=== PATIENT | female | born 1985 | race Caucasian/White ===

== ENCOUNTER → 2017-05-20 22:14 | Outpatient (REF) | payer OTHER, SELFPAY ==
[2017-05-20 23:02] LABS: Cholesterol 166 mg/dL (200); Glucose 85 mg/dL (70-110); High Density Lipoprotein 45 mg/dL; Triglycerides 122 mg/dL; Very Low Density Lipoprotein 24 mg/dL (5-40)
== END ==
LOC: OLS.WCEH 22:14
PROVIDERS: Family Provider Family Medicine; PCP Family Medicine; Visit Provider Family Medicine
DX: Z00.00 Encounter for general adult medical examination without abnormal findings (principal)
CPT/HCPCS: 80061; 82947

== ENCOUNTER → 2017-07-22 15:00 | Outpatient (CLI) | payer OTHER, SELFPAY | PROVIDERS: Visit Provider Obstetrics & Gynecology | DX: Z01.419 Encounter for gynecological examination (general) (routine) without abnormal findings (principal); Z12.4 Encounter for screening for malignant neoplasm of cervix ==

== ENCOUNTER → 2018-08-11 13:31 | Outpatient (CLI) | payer OTHER, SELFPAY | PROVIDERS: Visit Provider Obstetrics & Gynecology | DX: Z11.3 Encounter for screening for infections with a predominantly sexual mode of transmission (principal); Z32.01 Encounter for pregnancy test, result positive | CPT/HCPCS: 87491; 87591 ==

== ENCOUNTER → 2018-09-01 08:50 | Outpatient (CLI) | payer OTHER, SELFPAY ==
--- NOTE | 2018-09-01 08:54 | US_ITS ---
STUDY: ULTRASOUND BREAST - RIGHT REASON FOR EXAM: Female, 33 years old. PALPABLE LUMP - PT 9 WEEKS PREG. PT UNABLE TO PALPATE TECHNIQUE: Axial and longitudinal images of the RIGHT breast were performed with a high resolution ultrasound transducer. COMPARISON: None. FINDINGS: RIGHT Breast: There is a lesion in the inferior outer quadrant. The lesion measures 0.5 x 0.7 x 0.4 cm in size. Clock notation: 8 o'clock position. Distance from nipple: 5 cm. Posterior Enhancement: No. Posterior Shadowing: None. Margins: Sharp and smooth. Echogenicity: Hypoechoic with a hyperechoic center. Compression effect on Shape: No change. US/Breast Limited Unilateral IMPRESSION: The palpable lump in the right breast represents a lymph node and is probably benign. BIRADS Category 3. ASSESSMENT CATEGORY: BIRADS Category 3: Probably Benign - Short-Interval Follow-up Suggested. A letter regarding these results will be sent to the patient by the facility within 30 days. Electronically Signed: Baljinder Maxwell, at 13:16 EDT Tel , Service support ,
== END ==
PROVIDERS: Referring Provider Obstetrics & Gynecology; Visit Provider Obstetrics & Gynecology
DX: N63.10 Unspecified lump in the right breast, unspecified quadrant (principal)
CPT/HCPCS: 76642

== ENCOUNTER → 2019-01-05 | Outpatient (CLI) | payer OTHER, SELFPAY ==
[2019-01-05 10:38] LABS: Hematocrit 33.6 % (37-47); Hemoglobin 11.3 g/dL (12.0-15.0); Mean Corp Hgb Conc 33.6 g/dL (32-36); Mean Corpuscular Hgb 31.5 pg (27.0-32.0); Mean Corpuscular Volume 93.6 fL (81-99); Mean Platelet Vol. 9.7 fl (6.2-12.0); Platelet Count 348 K/mm3 (150-450); RBC Distribution Width CV 13.3 % (11.6-14.6); RBC Distribution Width SD 46.1 fl (35.1-43.9); Red Blood Count 3.59 M/mm3 (4.2-5.4); White Blood Count 10.3 K/mm3 (4.4-11.0)
[2019-01-05 11:00] LABS: Glucose Challenge Gest 1H 50g 103 mg/dL (70-140)
[2019-01-05 11:13] LABS: Vitamin D,25 Hydroxy 26.8 ng/mL (29.95-100.01)
== END | disposition home or self-care (01) ==
LOC: WOBLAB 10:14
PROVIDERS: Visit Provider Obstetrics & Gynecology
DX: Z34.82 Encounter for supervision of other normal pregnancy, second trimester (principal)
CPT/HCPCS: 36415; 82306; 82950; 85027

== ENCOUNTER 2019-03-09 19:30 | Observation (INO) | payer OTHER, SELFPAY ==
[2019-03-09 12:55] VITALS: BMI 40.0
[2019-03-09] MEDS: Betamethasone/Betamethasone 30 MG/5 ML Vial 12 MG IM (14:15)
[2019-03-09] MEDS: Ondansetron ODT 4 MG Tablet PO (14:16)
[2019-03-09] MEDS: proMETHazine 25 MG/ML Syringe 12.5 MG IV (16:53)
[2019-03-09] MEDS: Lactated Ringers 1,000 ML 1000 ML IV (17:05)
[2019-03-09 19:08] LABS: Color, Urine Yellow (Yellow); Glucose, Dipstick Normal (Normal); Leukocyte Esterase-Dipstick 25 /ul (Negative); Nitrite-Dipstick Negative (Negative); Occult Blood-Urine 25 /ul (Negative); Protein-Dipstick 30 mg/dl (Negative); Urine Bilirubin Dipstick Negative (Negative); Urine Clarity Sl. Cloudy (Clear); Urine Urobilinogen 1 mg/dl (Normal); Urine pH 6.5 (5.0 - 8.0)
[2019-03-09 19:13] LABS: Ketone-Dipstick 150 mg/dl (Negative)
[2019-03-09] MEDS: Dextrose 5%-Lactated Ringers 1,000 ML 250 ML IV (20:04)
--- NOTE | 2019-03-10 00:03 | OB.TRI.NOTE ---
History of Present Illness Date of Service: 03/09/19 - This is a late entry for 03/09/19 at 1930 Was patient seen by the physician?: Yes Date of Service: 03/09/19 Final CHANTELL: 04/03/19 Final CHANTELL Source: US >20 weeks Gestational age: 36 Weeks and 4 Days History of Present Illness: Patient is a 33 yo who was seen in the office today with c/o back pain, abdominal pain and contractions; she was sent to [facility] for evaluation; she now reports nausea and is experiencing vomiting which has subsided somewhat since receiving a dose of Phenergen. She received her first dose of cortecosteroids at 1415 today (03/09/10). Michelle has a medical history of depression and anxiety, and has experienced a 24 pound weight loss during this ; GBS culture was performed in office today, status unknown at this time Allergies amoxicillin Allergy (Verified 09/02/14 20:54) Unknown Laboratory Studies: Laboratory Tests 03/09/19 Range/Units 18:55 Urine Color Yellow (Yellow) Urine Clarity Sl. Cloudy (Clear) Urine pH 6.5 (5.0 - 8.0) Ur Specific [place] 1.020 (1.002-1.030) Urine Protein 30 H (Negative) mg/dl Urine Glucose (UA) Normal (Normal) mg/dl Urine Ketones 150 H (Negative) mg/dl Urine Occult Blood 25 H (Negative) /ul Urine Nitrite Negative (Negative) Urine Bilirubin Negative (Negative) mg/dL Urine Urobilinogen 1 H (Normal) mg/dl Ur Leukocyte Esterase 25 H (Negative) /ul Review of Systems Constitutional: Reports: Fatigue Gastrointestinal: Reports: Abdominal Pain Musculoskeletal: Reports: Back Pain Psychiatric: Reports: Anxiety Physical Exam Vitals: AVSS General: Alert, Oriented x3, Cooperative HEENT: PERRLA, EOMI Cardiovascular: Regular rate, Regular Rhythm Lungs: Clear to auscultation, Normal air movement Abdomen: Bowel Sounds Present, Soft, Non Tender, Non-Distended, Gravid Neurological: Cranial nerves II-XII grossly intact, Deep Tendon Reflexes 2+/4 and Symmetrical CHEMICAL ENGRAVER: Normal external genitalia. Negative for: Vulvar lesions Presentation: Cephalic Cervix Dilation (cm): 3.5 Station: -3 Effacement (%): 60 - Cervical exam per RN NST - FHR Rate Baby A Variability:: Moderate Accelerations:: None Decelerations:: None NST Reactive:: Non-Reactive FHR Category:: Category I Uterine Activity:: Irritability - FHR Rate Baby B Uterine Activity:: Occsassional contractions, palpate mild Impression/Plan Impression: Possible labor Ketonuria GBS unknown Cat 1 FHTs Plan: Discussed with Dr. Pranav Tran for observation Course of cortocosteroids begun Phenergen for nausea Demerol for pain D5LR for ketonuria
[2019-03-10] MEDS: Mag Hydrox/Al Hydrox/Simeth 30 ML UDC PO (00:34)
--- NOTE | 2019-03-10 00:39 | OB.TRI.PN ---
Progress Notes Date of Service: 03/09/19 Progress Note: This is a late entry for 03/09/19 at 2115 S: Sleeping, no recent c/o nausea, pain or vomiting O: AVSS FHTs: 125 bpm, moderate variability, with accels, no decels UCs: Occasional A: Resolving nausea, vomiting Not in labor GBS unknown P: Continue IV LR at KVO when D5LR infusio complete Continued monitoring, close observation Completion of corticosteroid course 03/10/19 at approx 1415 Laboratory Studies: Laboratory Tests 03/09/19 Range/Units 18:55 Urine Color Yellow (Yellow) Urine Clarity Sl. Cloudy (Clear) Urine pH 6.5 (5.0 - 8.0) Ur Specific [place] 1.020 (1.002-1.030) Urine Protein 30 H (Negative) mg/dl Urine Glucose (UA) Normal (Normal) mg/dl Urine Ketones 150 H (Negative) mg/dl Urine Occult Blood 25 H (Negative) /ul Urine Nitrite Negative (Negative) Urine Bilirubin Negative (Negative) mg/dL Urine Urobilinogen 1 H (Normal) mg/dl Ur Leukocyte Esterase 25 H (Negative) /ul
--- NOTE | 2019-03-10 00:49 | OB.TRI.PN ---
Progress Notes Date of Service: 03/09/19 Progress Note: This is a late entry for 03/09/19 at 2330 S: Resting comfortably, denies pain, nausea or vomiting O: AVSS FHTs: bpm, moderate variability, with accels, no decels UCs: Occasional A: Resolving nausea and vomiting Not in labor GBS unknown P: Continue IV LR at KVO Continue close monitoring Complete course of cortocosteroids 03/10/19 at 1415 Laboratory Studies: Laboratory Tests 03/09/19 Range/Units 18:55 Urine Color Yellow (Yellow) Urine Clarity Sl. Cloudy (Clear) Urine pH 6.5 (5.0 - 8.0) Ur Specific [place] 1.020 (1.002-1.030) Urine Protein 30 H (Negative) mg/dl Urine Glucose (UA) Normal (Normal) mg/dl Urine Ketones 150 H (Negative) mg/dl Urine Occult Blood 25 H (Negative) /ul Urine Nitrite Negative (Negative) Urine Bilirubin Negative (Negative) mg/dL Urine Urobilinogen 1 H (Normal) mg/dl Ur Leukocyte Esterase 25 H (Negative) /ul
--- NOTE | 2019-03-10 03:56 | OB.TRI.PN ---
Progress Notes Date of Service: 03/10/19 Progress Note: S: Dozing intermittently, denies pain w/exception of heartburn O: AVSS FHTs: 120bpm, moderate variability, no accels, no decels UCs: None Cervical Exam: Deferred UOP: 200 ml since admission, dark, tea colored A: Nausea/vomiting resolved Cat 1 FHTs Inadequate UOP P: 500 ml LR bolus Continue expectant management Laboratory Studies: Laboratory Tests 03/09/19 Range/Units 18:55 Urine Color Yellow (Yellow) Urine Clarity Sl. Cloudy (Clear) Urine pH 6.5 (5.0 - 8.0) Ur Specific [place] 1.020 (1.002-1.030) Urine Protein 30 H (Negative) mg/dl Urine Glucose (UA) Normal (Normal) mg/dl Urine Ketones 150 H (Negative) mg/dl Urine Occult Blood 25 H (Negative) /ul Urine Nitrite Negative (Negative) Urine Bilirubin Negative (Negative) mg/dL Urine Urobilinogen 1 H (Normal) mg/dl Ur Leukocyte Esterase 25 H (Negative) /ul
[2019-03-10] MEDS: Lactated Ringers 500 ML 999 ML IV (03:59)
[2019-03-10] MEDS: Lactated Ringers 1,000 ML 15 ML IV (05:15)
--- NOTE | 2019-03-10 08:26 | OB.TRI.PN_ITS ---
Progress Notes Date of Service: 03/10/19 Progress Note: PROGRESS NOTE No issues overnight. Contractions and nausea resolved. + FM. Denies leaking of fluid, vaginal bleeding. Michelle feels well this morning. AVSS GEN - NAD, AAO x 3 FHR 135, moderate variability, + accelerations, no decelerations TOCO 0/10 min SVE deferred A/P: 33yo @ 36 4/7wga with false labor, Cat I FHR -s/p Betamethasone x 1 -No advancing labor -Will d/c home and given second dose of betamethasone now Laboratory Studies: Laboratory Tests 03/09/19 Range/Units 18:55 Urine Color Yellow (Yellow) Urine Clarity Sl. Cloudy (Clear) Urine pH 6.5 (5.0 - 8.0) Ur Specific [place] 1.020 (1.002-1.030) Urine Protein 30 H (Negative) mg/dl Urine Glucose (UA) Normal (Normal) mg/dl Urine Ketones 150 H (Negative) mg/dl Urine Occult Blood 25 H (Negative) /ul Urine Nitrite Negative (Negative) Urine Bilirubin Negative (Negative) mg/dL Urine Urobilinogen 1 H (Normal) mg/dl Ur Leukocyte Esterase 25 H (Negative) /ul
[2019-03-10] MEDS: Betamethasone/Betamethasone 30 MG/5 ML Vial 12 MG IM (08:56)
== END 2019-03-10 09:25 | disposition home or self-care (01) ==
LOC: WPOUT 03-10 10:16
PROVIDERS: Admitting Provider Obstetrics & Gynecology; Referring Provider Obstetrics & Gynecology; Visit Provider Obstetrics & Gynecology
DX: O47.03 False labor before 37 completed weeks of gestation, third trimester (principal); Z3A.36 36 weeks gestation of pregnancy; R82.4 Acetonuria; R11.2 Nausea with vomiting, unspecified
CPT/HCPCS: 96361; 96374; 96375; 59025; 59050; 81002; 87081; 96372; 99218; J7120; G0378; J0702

== ENCOUNTER 2019-03-16 12:40 | Outpatient (CLI) | payer OTHER, SELFPAY ==
[2019-03-16 13:09] VITALS: BMI 41.2
[2019-03-16 13:16] LABS: Hematocrit 36.2 % (37-47); Hemoglobin 12.3 g/dL (12.0-15.0); Mean Corpuscular Hgb 31.1 pg (27.0-32.0); Mean Corpuscular Volume 91.4 fL (81-99); Mean Platelet Vol. 9.9 fl (6.2-12.0); Platelet Count 339 K/mm3 (150-450); RBC Distribution Width CV 13.6 % (11.6-14.6); RBC Distribution Width SD 45.4 fl (35.1-43.9); Red Blood Count 3.96 M/mm3 (4.2-5.4); White Blood Count 15.2 K/mm3 (4.4-11.0)
[2019-03-16 13:25] LABS: AST(SGOT) 12 U/L (15-37); Alanine Aminotransfer ALT/SGPT 10 U/L (13-56); Creatinine, Serum 0.74 mg/dL (0.55-1.02); EST Glomerular Filtration Rate 96 mL/min (>60); Est Glom Filt Rate - Afr Amer 116 mL/min (>60); Estimated Creatinine Clearance 101.23 ml/min; Uric Acid 6.2 mg/dL (2.6-6.0)
[2019-03-16 13:27] LABS: Protein, Urine (Random) 36.5 mg/dL (<11.9); Protein:Creat Ratio 136 mg/g CRE (0-200)
--- NOTE | 2019-03-16 23:00 | OB.TRI.NOTE ---
- Problem List (1) 37 weeks gestation of Status: Acute (2) Elevated blood pressure reading without diagnosis of hypertension Status: Acute History of Present Illness Date of Service: 03/16/19 Was patient seen by the physician?: No Reason For Visit: R/O PIH Final CHANTELL: 04/03/19 Final CHANTELL Source: US >20 weeks Gestational age: 37 Weeks and 3 Days History of Present Illness: 33yo @ 37 2/7wga sent from office with elevated BP 164/90, urine with 1+ protein. Patient denies headache, vision changes, abdominal pain. Reported she feels well. + FM, no leaking of fluid, no contractions or vaginal bleeding. Allergies amoxicillin Allergy (Verified 09/02/14 20:54) Unknown Laboratory Studies: Laboratory Tests 03/17/19 03/17/19 03/16/19 Range/Units 11:40 11:40 13:00 WBC (4.4-11.0) K/mm3 RBC (4.2-5.4) M/mm3 Hgb (12.0-15.0) g/dL Hct (37-47) % MCV (81-99) fL MCH (27.0-32.0) pg MCHC (32-36) g/dL RDW Std Deviation (35.1-43.9) fl RDW Coeff of Chichi (11.6-14.6) % Plt Count (150-450) K/mm3 MPV (6.2-12.0) fl Creatinine 0.7 0.74 (0.55-1.02) mg/dL Estim Creat Clear Calc 101.23 ml/min Est GFR (MDRD) Af Amer 116 116 (>60) mL/min Est GFR (MDRD) Non-Af 96 96 (>60) mL/min Uric Acid 6.2 H (2.6-6.0) mg/dL AST 12 L (15-37) U/L ALT 10 L (13-56) U/L U Random Total Protein (<11.9) mg/dL Urine Collection Time 24.0 24.0 (24.0) HOURS Timed Urine Volume 1125 1125 mL Urine Creatinine 120.0 (NO RANGE EST.) mg/dL Creatinine Clearance 127 (100-200) ml/min Ur Total Protein 24 Hr 191.2 H (<150 MG/24HR) mg/24HR Protein/Creatinin Ratio (0-200) mg/g CRE Urine Total Protein 17.0 H (<11.9) mg/dL 03/16/19 03/16/19 Range/Units 13:00 13:00 WBC 15.2 H (4.4-11.0) K/mm3 RBC 3.96 L (4.2-5.4) M/mm3 Hgb 12.3 (12.0-15.0) g/dL Hct 36.2 L (37-47) % MCV 91.4 (81-99) fL MCH 31.1 (27.0-32.0) pg MCHC 34.0 (32-36) g/dL RDW Std Deviation 45.4 H (35.1-43.9) fl RDW Coeff of Chichi 13.6 (11.6-14.6) % Plt Count 339 (150-450) K/mm3 MPV 9.9 (6.2-12.0) fl Creatinine (0.55-1.02) mg/dL Estim Creat Clear Calc ml/min Est GFR (MDRD) Af Amer (>60) mL/min Est GFR (MDRD) Non-Af (>60) mL/min Uric Acid (2.6-6.0) mg/dL AST (15-37) U/L ALT (13-56) U/L U Random Total Protein 36.5 H (<11.9) mg/dL Urine Collection Time (24.0) HOURS Timed Urine Volume mL Urine Creatinine 268.00 (NO RANGE EST.) mg/dL Creatinine Clearance (100-200) ml/min Ur Total Protein 24 Hr (<150 MG/24HR) mg/24HR Protein/Creatinin Ratio 136 (0-200) mg/g CRE Urine Total Protein (<11.9) mg/dL Physical Exam Vitals: avss NST - FHR Rate Baby A Baseline: 140 Variability:: Moderate Accelerations:: 15 x 15 Decelerations:: None NST Reactive:: Yes FHR Category:: Category I Uterine Activity:: 0/10 min Impression/Plan 33yo @ 37 3/7wga with elevated BPs. -BPs here wnl -Preeclamptic labs significant for elevated uric acid, otherwise labs wnl -Plan for d/c home, f/u in office later this week for BP check
[2019-03-17 13:22] LABS: 24 Hour Urine Protein 191.2 mg/24HR (<150 MG/24HR); 24HR. UA Prot. Total Volume 1125 mL
[2019-03-17 13:24] LABS: Creat.Clear Total Volume 1125 mL; Creatinine Clearance 127 ml/min (100-200); Creatinine Serum Creat 0.7 mg/dL (0.6-1.0); EST Glomerular Filtration Rate 96 mL/min (>60); Est Glom Filt Rate - Afr Amer 116 mL/min (>60)
== END 2019-03-16 14:05 | disposition home or self-care (01) ==
LOC: WPOUT 12:46 → WP 12:47
PROVIDERS: Family Provider Obstetrics & Gynecology; Visit Provider Obstetrics & Gynecology
DX: O26.893 Other specified pregnancy related conditions, third trimester (principal); R03.0 Elevated blood-pressure reading, without diagnosis of hypertension; Z3A.37 37 weeks gestation of pregnancy
CPT/HCPCS: 36415; 59025; 59050; 82565; 82570; 82575; 84156; 84450; 84460; 84550; 85027; 99218; G0378

== ENCOUNTER 2019-03-20 07:05 | Inpatient (IN) | payer OTHER, SELFPAY ==
[2019-03-20] VITALS (10 sets, daily range): BP systolic 92–169; BP diastolic 52–96; PULSE 78–92; RESP 16–18; TEMP 36.2–37; O2SAT 97–99; BMI 39.0
[2019-03-20] MEDS: Lactated Ringers 1,000 ML 200 ML IV (07:50)
[2019-03-20] MEDS: Oxytocin 30 units/NS 500 ml 30 UNITS/500 ML IV.SOLN IV (07:58)
[2019-03-20 08:16] LABS: Absolute Lymphocyte Count 1.54 X10^3/uL (0.83-4.51); Absolute Neutrophil Count 13.8 X10^3/uL (2.0-7.7); Basophil# 0.04 X10^3/uL; Basophil% 0.2 % (0-1); Eosinophil# 0.06 X10^3/uL; Eosinophils% 0.4 % (0-5); Hematocrit 37.9 % (37-47); Hemoglobin 12.9 g/dL (12.0-15.0); Lymphocyte # 1.54 X10^3/ul (4.0); Lymphocyte % 9.4 % (19-41); Mean Corpuscular Hgb 31.6 pg (27.0-32.0); Mean Corpuscular Volume 92.9 fL (81-99); Mean Platelet Vol. 10.1 fl (6.2-12.0); Monocyte# 0.81 X10^3/uL; NRBC Flagged by Analyzer 0 % (0-5); Neutrophil # 13.75 X10^3/uL (2.7-7.7); Neutrophil % 84.3 % (47-70); Platelet Count 351 K/mm3 (150-450); RBC Distribution Width CV 13.5 % (11.6-14.6); RBC Distribution Width SD 45.9 fl (35.1-43.9); Red Blood Count 4.08 M/mm3 (4.2-5.4); White Blood Count 16.3 K/mm3 (4.4-11.0)
[2019-03-20 08:24] LABS: Prothrombin Time (Protime)PT. 12.6 SECONDS (11.7-14.9)
[2019-03-20 08:25] LABS: Partial Thromboplast Time 29.2 Seconds (24.1-36.2)
[2019-03-20 08:31] LABS: AST(SGOT) 15 U/L (15-37); Alanine Aminotransfer ALT/SGPT 12 U/L (13-56); Creatinine, Serum 0.72 mg/dL (0.55-1.02); EST Glomerular Filtration Rate 99 mL/min (>60); Est Glom Filt Rate - Afr Amer 120 mL/min (>60); Estimated Creatinine Clearance 104.04 ml/min; Uric Acid 5.4 mg/dL (2.6-6.0)
[2019-03-20] MEDS: Labetalol 20 MG/4 ML Vial IV (09:00)
[2019-03-20] MEDS: Magnesium Sulfate 4gm/100mL 4 GM/100 ML IV.SOLN. IV (09:18)
--- NOTE | 2019-03-20 09:30 | PCM.HP.OB ---
- Problem List (1) 37 weeks gestation of Status: Acute (2) Preeclampsia Status: Acute Qualifiers: Trimester: third trimester Qualified Code(s): O14.93 - Unspecified pre-eclampsia, third trimester History Date of Admission: 03/20/19 Final CHANTELL: 04/04/19 Final CHANTELL Source: US >20 weeks Gestational age: 37 Weeks and 6 Days History of this : This is a 33 year-old, G [2], P [1], at 37 6/7 weeks gestational age presents for scheduled induction for gestational hypertension. Denies headache, vision changes, shortness of breath or abdominal pain. + FM. No LOF or VB. No contractions. Allergies amoxicillin Allergy (Verified 09/02/14 20:54) Unknown Home Medications: Home Medications Vits [Prenatabs FA ] 1 tablet PO DAILY 08/27/14 Escitalopram Oxalate [Lexapro] 10 mg PO DAILY 12/09/14 Smoking Status: Never smoker Alcohol: None Number of Fetus(es): 1 NST - FHR Rate Baby A Baseline: 140 Variability:: Moderate Accelerations:: 15 x 15 Decelerations:: None NST Reactive:: Yes FHR Category:: Category I Uterine Activity:: 3 History Past Pregnancies: Past Pregnancies Delivery Date Name GA/Weeks Outcome Route Weight Infant Gender Labor Length Anesthesia Delivery Location Provider FOB 11/2014 [facility] 37 Living 5 lb 7oz M Labs: Mom's Problem List Problem Status Onset Code Preeclampsia Acute O14.90 Mom's Labs & Results 03/20/19 03/20/19 03/20/19 07:50 07:50 07:50 WBC 16.3 H RBC 4.08 L Hgb 12.9 Hct 37.9 MCV 92.9 MCH 31.6 MCHC 34.0 RDW Std Deviation 45.9 H RDW Coeff of Chichi 13.5 Plt Count 351 MPV 10.1 Immature Gran % (Auto) 0.700 Neut % (Auto) 84.3 H Lymph % (Auto) 9.4 L Ponce % (Auto) 5.0 Eos % (Auto) 0.4 Baso % (Auto) 0.2 Absolute Neuts (auto) 13.8 H Absolute Lymphs (auto) 1.54 Nucleated RBC % 0 PT 12.6 INR 1.0 APTT 29.2 Creatinine Estim Creat Clear Calc Est GFR (MDRD) Af Amer Est GFR (MDRD) Non-Af Uric Acid AST ALT U Random Total Protein Urine Creatinine Protein/Creatinin Ratio Blood Type O POSITIVE Antibody Screen NEGATIVE 03/20/19 03/20/19 07:50 10:10 WBC RBC Hgb Hct MCV MCH MCHC RDW Std Deviation RDW Coeff of Chichi Plt Count MPV Immature Gran % (Auto) Neut % (Auto) Lymph % (Auto) Ponce % (Auto) Eos % (Auto) Baso % (Auto) Absolute Neuts (auto) Absolute Lymphs (auto) Nucleated RBC % PT INR APTT Creatinine 0.72 Estim Creat Clear Calc 104.04 Est GFR (MDRD) Af Amer 120 Est GFR (MDRD) Non-Af 99 Uric Acid 5.4 AST 15 ALT 12 L U Random Total Protein 58.5 H Urine Creatinine 484.00 Protein/Creatinin Ratio 121 Blood Type Antibody Screen Course Did the patient receive Yes care? Labs Blood Type: O RH: POSITIVE RPR/VDRL/Syphilis Nonreactive HbSAg Negative Chlamydia Negative Gonorrhea Negative HIV/AIDS Non-Reactive Group B Strep: Negative Current Obstetrical History Gestational Diabetes No Incompetent Cervix No Infertility No IUGR No Macrosomia No Hypertension/Pre-eclampsia Yes Placenta Previa/Abruption No PTL/PROM No Uterine anomaly No Oligohydramnios No Polyhydramnios No Multiple gestation No Past Medical History Asthma No Diabetes No Hypertension No Heart disease No Mitral valve prolapse No Neurologic/Seizure disorder/ No Migraines Kidney disease No Liver disease No Varicosities No Clotting disorders/Hx of DVT No Thyroid Dysfunction No Other medical diseases No Psychiatric disorders Yes: anxiety Major trauma No Abnormal PAP smear No Sleep apnea No Mammogram in the last 2 years No Social History Marital Status: SINGLE Alleged father Lu [place] Hx Smoking No Smoking Status Never smoker Expected Infant Delivery Method: Spontaneous Vaginal Number of Visits: 12 Review of Systems Constitutional: Reports: Fatigue. Denies: Fever Eyes: Denies: Vision Change Respiratory: Denies: Shortness of Breath Gastrointestinal: Reports: Nausea. Denies: Abdominal Pain, Vomiting Gynecological: Denies: Vaginal bleeding Neurological: Denies: Headaches Physical Exam Vitals: Vital Signs Temp Pulse Resp BP Pulse Ox 97.9 F 78 18 112/57 L 97 03/20/19 20:45 03/20/19 20:45 03/20/19 20:45 03/20/19 20:45 03/20/19 20:45 BPs on admission to 170s/100s General: Alert, Oriented x3, Cooperative, No apparent distress HEENT: Atraumatic, Normocephalic Cardiovascular: Regular rate, Regular Rhythm, Normal S1, Normal S2 Lungs: Clear to auscultation, Normal air movement Abdomen: Soft, Non Tender, Non-Distended, Gravid Neurological: Neuro grossly intact BINDING PRINTER: Normal external genitalia Estimated gestational size: Appropriate for gestational size Presentation: Cephalic Cervix Dilation (cm): 5 Station: -3 Effacement (%): 60 Assessment/Plan All Active Problems 37 weeks gestation of (Acute) Elevated blood pressure reading without diagnosis of hypertension (Acute) Preeclampsia (Acute) This is a 33 year-old, G [2], P [1001], at 37 6/7 weeks gestational age with preeclampsia with severe features, Cat I FHR -Pitocin started -Amniotomy performed with clear fluid -IV Labetalol - initiate hypertensive protocol for severely elevated BPs - status reassuring
[2019-03-20] MEDS: Magnesium Sulfate 4gm/100mL 2 GM/50 ML IV.SOLN. IV (09:38)
[2019-03-20] MEDS: Lactated Ringers 500 ML 999 ML IV (09:40)
[2019-03-20] MEDS: Magnesium Sulfate 20 GM/500 ML BAG IV ×2 (09:50→19:49)
[2019-03-20] MEDS: Labetalol 100 MG Tablet PO ×2 (10:09→21:50)
[2019-03-20 11:05] LABS: Protein, Urine (Random) 58.5 mg/dL (<11.9); Protein:Creat Ratio 121 mg/g CRE (0-200)
--- NOTE | 2019-03-20 12:54 | PLAC_PTH ---
PATIENT: ULISES COOLEY LOC: [facility] U#:[id number] AGE/SX: 33/F ROOM: WP015 RE03/20/[address]: Dr. Aura Escalera MD : 1985 BED: 1 DIS: 03/22/2019 SPEC #: [id number] RECD: 03/20/19 15:35 STATUS: AMALIA RENoemy #: [id number] CYRUS: 03/20/19 12:[address]: Aura Beckham DEPT: SURGICAL PATHOLOGY RECD BY: Paolo Lopez ENTERED: 03/23/19 09:47 SP TYPE: PLACENTA OTHR DR: Julia Primary Care Phys Tissues: Placenta, NOS Procedures: Surgery Specimen Level V HEADER OPERATION: Vaginal delivery PRE-OP DIAGNOSIS: Vaginal delivery TISSUE SUBMITTED: Placenta MICROSCOPIC DIAGNOSIS Placenta: Placental disc - third trimester placenta (539 gm). - Focal area of peripheral infarction (4 cm in greatest dimension). - Focal intervillous and perivillous fibrin deposition. Membranes - focal acute chorioamnionitis. Umbilical cord - three blood vessels and no pathologic diagnosis. SJ:funmi 03/24/19 MICROSCOPIC DESCRIPTION Slides are reviewed. GROSS DESCRIPTION SPECIMEN: PLACENTA / CLINICAL INFORMATION: A. Weight: 2.687 kg B. Gestational Age: 37 weeks C. Sex: Female PLACENTAL WEIGHT (POST FIXATION): 539 gm PLACENTAL DIMENSIONS: 21 x 19 x 3.5 cm PLACENTAL SHAPE: Usual ovoid PLACENTAL WEIGHT FOR GESTATIONAL AGE: Within 10-99th percentile MEMBRANES - Present. The membranes are partly fragmented. A few blood clots are noted in the membranes. A. Insertion: Marginal B. Site of rupture from edge: At edge of placental disc C. Color of membrane: Olson-roy D. Abnormalities: None UMBILICAL CORD - Present A. Color: Olson-roy B. Insertion: Central C. Length: Up to 28 cm D. Diameter: 1.3 cm E. Number of vessels: Three F. Abnormalities: None PLACENTAL DISC - Present A. Color of surface: Olson-roy B. surface abnormalities: None C. Maternal cotyledons: Intact with minimal tears D. Attached retro placental clot: No clot E. Cut surface: Dark red and spongy F. Lesions: The peripheral portion of the placenta shows a olson, indurated area measuring 4 cm in greatest dimension. G. Separate clot: Received in the container are multiple clots weighing 180 gm and measuring in aggregate 11 x 11 x 5 cm. SECTIONS SUBMITTED: 1. Membrane roll 2. Cord, maternal end, lesion 3. Cord, end, lesion 4. Placental disc, and maternal surfaces 5. Placental disc, and maternal surfaces 6. Placental disc, and maternal surfaces DOROTHY:funmi 03/23/19 TC:2 CPT: 32222
[2019-03-20] MEDS: Oxytocin 30 units/NS 500 ml 30 UNITS/500 ML IV.SOLN 334 UNITS IV (13:05)
[2019-03-20 15:35] LABS: Pathology Specimen OB SEE PATHOLOGY REPORT
--- NOTE | 2019-03-20 19:49 | NURSING ---
Bilateral bicep and bilateral patellar reflexes WNL, 2+ at 1949. No clonus present .
--- NOTE | 2019-03-20 19:50 | NURSING ---
See QS chart for all BP, HR and Pulse ox during labor and through recovery and through 18:49. Unable to late chart on mar infusion /titration. Mother's response has been tolerating well throughout day, resp even, unlabored with normal depth.
--- NOTE | 2019-03-20 20:23 | PCM.OPRPT ---
Problem List (1) Preeclampsia Status: Acute Qualifiers: Trimester: third trimester Qualified Code(s): O14.93 - Unspecified pre-eclampsia, third trimester Report of Operation Date of Procedure: 03/20/19 Vaginal Delivery Maternal Presentation: Medically Indicated Induction Method of Induction: Pitocin, Amniotomy Medical Reason for Induction: Gestational Hypertension Amniotic Membrane Rupture Type: Artificial Rupture of Membrane time: 03/20/19 0910h Amniotic Fluid Description: Clear Final CHANTELL: 04/04/19 Gestational age: 37 Weeks and 6 Days Date of Procedure: 03/20/19 Pre-Operative Diagnosis: 37 6/7wga, preeclampsia with severe features Post-Operative Diagnosis: 37 6/7wga, preeclampsia with severe features Surgery/ Procedure Performed: Spontaneous Vaginal Delivery Anesthesiologist: Morro Nur Type of Anesthesia: Epidural Description of Procedure: Patient was FD/+3 station on my arrival. Pushed to deliver a female over an intact perineum through a nuchal cord. The infant was placed on the maternal abdomen and further attended by nursery personnel. The cord was doubly clamped and cut. Cord gases and cord blood specimen were obtained. The placenta delivered spontaneously and appeared intact on inspection. IV pitocin was started. Bleeding was heavy with atony without hemorrhage. Intrauterine exam was performed with evacuation of clot and bimanual uterine massage was performed and Hemabate given with hemostasis attained. A left labial laceration was repaired with 3-0 Vicryl Rapide. Sponge and needle counts were correct x 2. Presentation: Vertex Placental Delivery Description: Spontaneous Placenta Disposition: [facility] Cord Vessel Description: 3 Vessels Nuchal Cord Compression: With compression Cord Gases drawn per routine: ABG, VBG Cord Entanglement: Around neck x 1, tight Drain: Helm to straight drain Estimated Blood Loss: 500 ml Infant A gender: Female (1 minute): 8 (5 minute): 8 Episiotomy Description: None Medications given after delivery: IV Pitocin, IM Hemabate Complications: None
--- NOTE | 2019-03-20 21:07 | NURSING ---
Left labial laceration. WNL.
--- NOTE | 2019-03-20 21:07 | NURSING ---
Indwelling urinary catheter present. WNL.
--- NOTE | 2019-03-20 21:45 | NURSING ---
B/L bicep and B/L patellar reflexes WNL, 2+. Clonus not present.
--- NOTE | 2019-03-20 23:49 | NURSING ---
Bilateral bicep and bilateral patellar reflexes WNL, 2+. Clonus not present.
--- NOTE | 2019-03-20 23:54 | NURSING ---
Left labial laceration. WNL.
--- NOTE | 2019-03-20 23:59 | NURSING ---
Indwelling kumar catheter present. WNL.
[2019-03-21 00:45] VITALS: BP 89/50; RESP 16
[2019-03-21] MEDS: 0.9% Saline Lock 10 ML Syringe IV (00:58)
[2019-03-21 04:24] VITALS: BP 109/57; PULSE 80; RESP 18; TEMP 36.3; O2SAT 97
--- NOTE | 2019-03-21 04:29 | NURSING ---
Left labial laceration. WNL.
--- NOTE | 2019-03-21 04:48 | NURSING ---
Urinary catheter removed at 0448. Catheter was patent and WNL. No issues with removal, patient tolerated well.
--- NOTE | 2019-03-21 04:51 | NURSING ---
Patient up and ambulated to couch to sit up to breast feed . Feeding going much better now that patient is sitting up. Tolerated ambulation well.
--- NOTE | 2019-03-21 09:49 | PCM.PN.OB ---
Patient Problems: Active and Suspected Problems Preeclampsia (Acute) Subjective: Denies headache, vision changes, abdominal pain, shortness of breath, chest pain. No heavy lochia. Feels well this morning. Objective: AVSS - Physical Exam General: Alert, Oriented x3, Cooperative, No apparent distress HEENT: Atraumatic, Normocephalic Lungs: Clear to auscultation, Normal air movement Cardiovascular: Regular rate, Regular Rhythm, Normal S1, Normal S2 Abdomen: Soft, Non Tender, Non-Distended, - - Fundus firm and nontender, lochia scant Extremities: No edema, No Calf Tenderness Neurological: Neuro grossly intact Psych/Mental Status: Normal Affect, Appropriate, Alert and oriented to time, place, person, mood and affect Vital Signs Temp Pulse Resp BP Pulse Ox 98.0 F 74 18 154/88 H 97 03/22/19 07:52 03/22/19 07:52 03/22/19 07:52 03/22/19 08:25 03/22/19 07:52 Oxygen Delivery Method Room Air Weight: 109.7 kg Body Mass Index (BMI) 39.0 Intake and Output for Last 24 Hours 03/20/19 03/21/19 03/22/19 23:59 23:59 23:59 Intake Total 2961.26 / 2961.26 77.5 / 77.5 Output Total 2175 / 2175 800 / 800 Balance 786.26 / 786.26 -722.5 / -722.5 Medical Necessity - Tobacco Use Smoking Status: Never smoker Assessment/Plan All Active Problems 37 weeks gestation of (Acute) Elevated blood pressure reading without diagnosis of hypertension (Acute) Preeclampsia (Acute) This is a 33 year-old, G [2], P [2], PPD#1 s/p doing well. -hx preeclampsia with severe features s/p magnesium - no si/sx worsening. Continue to monitor. -Rh positive, Rubella immune -Routine care
[2019-03-21 09:50] VITALS: BP 105/57; PULSE 85; RESP 16; TEMP 36.4; O2SAT 98
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
[2019-03-21] MEDS: Escitalopram Oxalate 10 MG Tablet PO (10:20)
[2019-03-21] MEDS: Prenatal Vits Tablet 1 TABLET PO (10:20)
[2019-03-21 13:55] VITALS: BP 131/75; PULSE 86; RESP 16; TEMP 36.4; O2SAT 96
[2019-03-21 19:52] VITALS: BP 136/77; PULSE 76; RESP 16; TEMP 36.4
[2019-03-22] VITALS (9 sets, daily range): BP systolic 130–163; BP diastolic 63–90; PULSE 71–95; RESP 16–18; TEMP 36.1–36.7; O2SAT 97–98
--- NOTE | 2019-03-22 09:16 | NURSING ---
Dr. Alana Escalera on unit, updated on recent BPs, patient denies RODRIGUEZ, visual changes and LUQ pain. Plan to continue to monitor at this time.
--- NOTE | 2019-03-22 09:43 | PCM.PN.OB ---
Patient Problems: Active and Suspected Problems Preeclampsia (Acute) Subjective: No issues overnight. Denies headache, vision changes, shortness of breath, heavy lochia or pain. She feels well. Denies increased anxiety, but reports her stepmother is stressing her out. Objective: AVSS - Physical Exam General: Alert, Oriented x3, Cooperative, No apparent distress HEENT: Atraumatic, Normocephalic Lungs: Clear to auscultation, Normal air movement Cardiovascular: Regular rate, Regular Rhythm, Normal S1, Normal S2 Abdomen: Soft, Non Tender, Non-Distended, - - Fundus firm and nontender Extremities: No edema, No Calf Tenderness Neurological: Neuro grossly intact Psych/Mental Status: Normal Affect, Appropriate, Alert and oriented to time, place, person, mood and affect Vital Signs Temp Pulse Resp BP Pulse Ox 98.0 F 74 18 154/88 H 97 03/22/19 07:52 03/22/19 07:52 03/22/19 07:52 03/22/19 08:25 03/22/19 07:52 Oxygen Delivery Method Room Air Weight: 109.7 kg Body Mass Index (BMI) 39.0 Intake and Output for Last 24 Hours 03/20/19 03/21/19 03/22/19 23:59 23:59 23:59 Intake Total 2961.26 / 2961.26 77.5 / 77.5 Output Total 2175 / 2175 800 / 800 Balance 786.26 / 786.26 -722.5 / -722.5 Medical Necessity - Tobacco Use Smoking Status: Never smoker Assessment/Plan All Active Problems 37 weeks gestation of (Acute) Elevated blood pressure reading without diagnosis of hypertension (Acute) Preeclampsia (Acute) This is a 33 year-old, G [2], P [2], PPD#2 s/p doing well. -hx preeclampsia with severe features - BPs elevated this morning and patient otherwise asymptomatic. Will monitor, if repeat BPs are elevated will start oral antihypertensive. -Routine care. -Rh positive -Anticipate discharge later today
--- NOTE | 2019-03-22 10:10 | DCINST_ITS ---
Discharge Diet: No Restrictions Discharge Activity: Return to Normal Activity, May Shower, May Take a Tub Bath May resume sexual activity in: 6 weeks Additional Instructions: If you experience any of the following, contact your healthcare provider. * Bleeding that soaks a pad every hour for 2 hours * Fever 100.4 or higher * Unrelieved incision or abdominal pain * Swelling, redness, discharge or bleeding from your incision or episiotomy site * Your incision begins to separate * Problems urinating (including inability to urinate or burning while urinating). * Visual changes * Severe headache * Flu-like symptoms * Pain or redness in one of both of your breasts * Pain, warmth, tenderness or swelling in your legs, especially the calf area * Frequent nausea and vomiting * Symptoms of depression or anxiety If you experience any of the following, call 911 or go to the nearest Emergency Room. * Chest pain * Problems breathing * Seizure activity * Partial or complete paralysis of a body part, slurred speech, weakness or drooping of the face, or a sudden inability to walk or hold your balance Allergies/Adverse Reactions: Allergies amoxicillin Allergy (Verified 09/02/14 20:54) Unknown Medications to take at Discharge Vits [Prenatabs FA ] 1 tablet PO DAILY 08/27/14 Escitalopram Oxalate [Lexapro] 10 mg PO DAILY 12/09/14 Ibuprofen [Motrin] 600 mg PO Q8H PRN #30 tab 03/22/19 NIFEdipine [Procardia Xl] 60 mg PO DAILY #30 tab 03/22/19 The following prescriptions were given: Ibuprofen [Motrin] 600 mg PO Q8H PRN #30 tab PRN Reason: Pain Score 1-10/10 Transmission Status: Re[facility] by [id number] NIFEdipine [Procardia Xl] 60 mg PO DAILY #30 tab Transmission Status: Pending to [id number] Please Follow Up With: Aura Rock MD - blood pressure and mood check When: 7-10 days Please Follow Up With: Aura Rock MD When: 6 weeks Primary Care Physician: Care Physician,No Primary [Primary Care Provider] - Test Results: Test results from this visit will be discussed in further detail at your follow- up appointment, if applicable.
[2019-03-22] MEDS: Escitalopram Oxalate 10 MG Tablet PO (11:13)
[2019-03-22] MEDS: Prenatal Vits Tablet 1 TABLET PO (11:13)
--- NOTE | 2019-03-22 14:53 | NURSING ---
Dr. Alana Escalera on unit, discussed all recent BPs since 1200. Plan to start patient on Procardia and monitor for 4 hours prior to discharge.
[2019-03-22] MEDS: NIFEdipine 60 MG Tablet PO (15:29)
--- NOTE | 2019-03-22 19:26 | NURSING ---
Dr. Alana Escalera on unit, updated on last BP. Orders to discharge home, patient has BP cuff at home- instructed to call if symptomatic and follow up in office for repeat BP check in 7-10 days.
== END 2019-03-22 19:35 | disposition home or self-care (01) | DRG 807 ==
PROVIDERS: Admitting Provider Obstetrics & Gynecology; Referring Provider Obstetrics & Gynecology; Visit Provider Obstetrics & Gynecology
DX: O14.14 Severe pre-eclampsia complicating childbirth (principal); O99.344 Other mental disorders complicating childbirth; F41.9 Anxiety disorder, unspecified; O69.1XX0 Labor and delivery complicated by cord around neck, with compression, not applicable or unspecified; O70.0 First degree perineal laceration during delivery; Z37.0 Single live birth; Z3A.37 37 weeks gestation of pregnancy
CPT/HCPCS: 59025; 59050; 82565; 82570; 84156; 84450; 84460; 84550; 85025; 85610; 85730; 86850; 86900; 86901; 88307; 99218; J7120; A4216; G0378

== ENCOUNTER → 2020-02-01 09:42 | Outpatient (CLI) | payer MEDICAID, SELFPAY ==
[2019-03-20 07:27] VITALS: BMI 39.0
== END ==
DX: U07.1 COVID-19 (principal)
CPT/HCPCS: 87635; 94799; C9803; U0003

== ENCOUNTER → 2020-05-25 | Outpatient (CLI) | payer MEDICAID, SELFPAY ==
[2019-03-20 07:27] VITALS: BMI 39.0
[2020-05-27 07:07] LABS: Chlamydia By Nucleic Acid AMP Negative (Negative)
[2020-05-27 10:12] LABS: Gonococcus By Nucleic Acid AMP Negative (Negative)
== END | disposition home or self-care (01) ==
LOC: LABSPEC 09:29
PROVIDERS: Visit Provider Obstetrics & Gynecology
DX: Z11.3 Encounter for screening for infections with a predominantly sexual mode of transmission (principal)
CPT/HCPCS: 87491; 87591

== ENCOUNTER → 2020-05-30 14:19 | Outpatient (CLI) | payer MEDICAID, SELFPAY ==
[2019-03-20 07:27] VITALS: BMI 39.0
--- NOTE | 2020-05-30 14:27 | BI_ITS ---
MAMMOGRAPHY - BILATERAL DIAGNOSTIC REASON FOR EXAM: Female, 34 years old. Palpable lump in the inferior medial aspect of the right breast. PERTINENT HISTORY: Maternal grandfather with breast cancer. Aunt with breast cancer. TECHNIQUE: Digital bilateral breast jay (3D mammographic acquisition) in the CC and MLO projections. 2-D mediolateral oblique (MLO) and craniocaudad (CC) views of both breasts were obtained. CAD: Full Field Digital Mammography with Computer Added Detection was performed. COMPARISON: None. Baseline examination. FINDINGS: Breast Composition: There are scattered areas of fibroglandular density. There are no dominant masses or suspicious calcifications. There is a 5.2 mm x 6.5 mm well-defined nodule in the central lateral aspect of the right breast. This most likely represents a small intramammary lymph node. No other significant abnormalities are identified. BI/DIAG MAMM W/CAD, BILAT IMPRESSION: 5.2 mm x 6.5 mm well-defined nodule in the central lateral aspect of the right breast. With the patient''s history of a palpable lump in the central lateral aspect of the right breast, correlation with ultrasound is recommended. ASSESSMENT CATEGORY: BIRADS Category 0: Incomplete. Need additional imaging evaluation. A letter regarding these results will be sent to the patient by the facility within 30 days. Approximately 10% of breast cancers are not detected by mammography. A normal mammogram should not delay biopsy of a clinically suspicious abnormality. Electronically Signed: Bran Alonzo, at 15:30 EST , Service support ,
--- NOTE | 2020-05-30 14:56 | US_ITS ---
STUDY: ULTRASOUND BREAST - RIGHT REASON FOR EXAM: Female, 34 years old. Palpable lump in the right breast. TECHNIQUE: Axial and longitudinal images of the RIGHT breast were performed with a high resolution ultrasound transducer. # OF IMAGES: 89 COMPARISON: Comparison is made with prior mammogram done earlier in the day. Comparison is also made with prior sonogram of the right breast dated 09/01/2018. FINDINGS: RIGHT Breast: No sonographic abnormality corresponding to the palpable abnormality is seen. Stable 6 mm x 4 mm x 8 mm well-defined hypoechoic nodule at the 8 o''clock position of the breast at 4 cm from the nipple. This most likely represents a small lymph node. US/Breast Limited Unilateral IMPRESSION: Stable examination. ASSESSMENT CATEGORY: BIRADS Category 2: Benign. A letter regarding these results will be sent to the patient by the facility within 30 days. Electronically Signed: Bran Alonzo, at 15:50 EST , Service support ,
== END ==
PROVIDERS: PCP Family Medicine; Referring Provider Obstetrics & Gynecology; Visit Provider Obstetrics & Gynecology
DX: N63.15 Unspecified lump in the right breast, overlapping quadrants (principal)
CPT/HCPCS: 76642; 77062; 77066; G0279

== ENCOUNTER → 2020-07-05 10:14 | Outpatient (CLI) | payer MEDICAID, SELFPAY ==
[2019-03-20 07:27] VITALS: BMI 39.0
[2020-07-05 12:46] LABS: hCG Titer Quant., Serum 216 mIU/mL (1-3)
[2020-07-05 13:25] LABS: Progesterone Level 7.73 ng/mL (See Comment)
[2020-07-08 03:07] LABS: Chlamydia By Nucleic Acid AMP Negative (Negative)
[2020-07-08 20:16] LABS: HPV APTIMA, High Risk Positive (Negative)
[2020-07-08 20:17] LABS: Gonococcus By Nucleic Acid AMP Negative (Negative)
== END ==
PROVIDERS: PCP Family Medicine; Visit Provider Obstetrics & Gynecology
DX: Z32.01 Encounter for pregnancy test, result positive (principal); Z12.4 Encounter for screening for malignant neoplasm of cervix
CPT/HCPCS: 36415; 84144; 84702; 87491; 87591; 87624; 88175; G0145

== ENCOUNTER → 2020-07-07 10:02 | Outpatient (CLI) | payer MEDICAID, SELFPAY ==
[2019-03-20 07:27] VITALS: BMI 39.0
[2020-07-07 11:10] LABS: hCG Titer Quant., Serum 185 mIU/mL (1-3)
== END ==
PROVIDERS: PCP Family Medicine; Visit Provider Obstetrics & Gynecology
DX: O20.0 Threatened abortion (principal); Z3A.00 Weeks of gestation of pregnancy not specified
CPT/HCPCS: 36415; 84702

== ENCOUNTER → 2020-07-14 13:40 | Outpatient (CLI) | payer MEDICAID, SELFPAY ==
[2019-03-20 07:27] VITALS: BMI 39.0
[2020-07-14 15:28] LABS: Internal QC Validated? YES +Cl - CLEAR BKGD; Pregnancy, Serum, hCG Quali. NEGATIVE Negative
== END ==
PROVIDERS: PCP Family Medicine; Visit Provider Obstetrics & Gynecology
DX: O20.0 Threatened abortion (principal); Z3A.00 Weeks of gestation of pregnancy not specified
CPT/HCPCS: 36415; 84703

== ENCOUNTER → 2020-08-02 | Outpatient (CLI) | payer MEDICAID, SELFPAY ==
[2019-03-20 07:27] VITALS: BMI 39.0
--- NOTE | 2020-08-02 | IMM_PTH ---
PATIENT: ULISES COOLEY [facility] U#:[id number] AGE/SX: 35/F ROOM: RE08/02/[address]: Dr. Aura Escalera MD : 1985 BED: DIS: 08/02/2020 SPEC #: [id number] RECD: 08/04/20 10:14 STATUS: AMALIA REQ #: [id number] CYRUS: 08/02/20 00:[address]: Aura Beckham DEPT: IMMUNOHISTOCHEMISTRY RECD BY: Dorcas Bojorquez ENTERED: 08/04/20 10:14 SP TYPE: IMMUNO OTHR DR: Dr. Gary Rain DO Tissues: A - Uterine cervix, NOS Procedures: p16 (initial) KI-67 (add) PHYSICIAN & INSTITUTION [place] [id number] SPECIMEN INFORMATION: Tissue Source: A - Cervix at 11 o'clock Clinical Info: ASCUS, HR HPV Specimen Number: [id number] CPT code: 67946, 70348 METHODOLOGY: Deparaffinized sections of prefer/formalin-fixed tissue or PAP/DQ stained slides are incubated with monoclonal/polyclonal antibodies/oligonucleotide probes. Localization is made via biotin free immunoperoxidase method. Appropriate controls are performed and reacted as expected. Results on target cell population are indicated in the following table: RESULTS: ANTIBODY / CLONE RESULT Block A P16 (E6H4) positive, focal and patchy Ki-67 (30-9) positive, low These tests were developed and their performance characteristics determined by [facility]. They may not have been cleared or approved by the U.[place]. Food and Drug Administration. The FDA has determined that such clearance or approval is not necessary. The above immunohistochemical/dualISH markers are ordered and reviewed by the Pathologist. INTERPRETATION: A. Cervix at 11 o'clock, biopsy: Focal mild squamous dysplasia. DOROTHY:funmi 08/05/2020
--- NOTE | 2020-08-02 14:00 | CER_PTH ---
PATIENT: ULISES COOLEY [facility] U#:[id number] AGE/SX: 35/F ROOM: RE08/02/[address]: Dr. Aura Escalera MD : 1985 BED: DIS: 08/02/2020 SPEC #: [id number] RECD: 08/02/20 15:44 STATUS: AMALIA RENoemy #: [id number] CYRUS: 08/02/20 14:[address]: Aura Beckham DEPT: SURGICAL PATHOLOGY RECD BY: Mami Pritchett ENTERED: 08/03/20 12:55 SP TYPE: CERV OTHR DR: Dr. Gary Rain DO Tissues: A - Uterine cervix, NOS B - Endocervical Procedures: Surgery Specimen Level IV HEADER OPERATION: Colposcopy PRE-OP DIAGNOSIS: ASCUS, HR HPV TISSUE SUBMITTED: A - Cervical biopsy at 11 o'clock, B - ECC MICROSCOPIC DIAGNOSIS A. 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 Moderate chronic inflammation, mild acute inflammation and squamous metaplasia. See comment. B. ECC: Proliferative endometrium. Moderate chronic endometritis and mild acute endometritis. Scant fragments of benign endocervical epithelium. Negative for dysplasia. See comment. SJ:rg 08/04/2020 COMMENT A. Immunohistochemistry ([id number]) for surrogate HPV marker (p16) supports the above diagnosis. B. The specimen predominantly consists of endometrial tissue. Case has been reviewed in consultation with Dr. Ocampo who concurs with the above diagnosis. IDC:AM MICROSCOPIC DESCRIPTION Slides are reviewed. GROSS DESCRIPTION A - Received in fixative is one container labeled with the patient's name and designated cervical at 11 o'clock. The specimen consists of multiple irregular fragments of light olson soft tissue that in aggregate measure 0.5 x 0.4 x 0.1 cm. The specimen is totally submitted in one cassette. B - Received in fixative is one container labeled with the patient's name and designated ECC. The specimen consists of multiple irregular fragments of olson mucoid tissue that in aggregate measure 2.5 x 2.5 x 0.1 cm. The specimen is totally submitted in one cassette. / DOROTHY:funmi 08/03/20 TC:5 CPT: 52828 x2
== END | disposition home or self-care (01) ==
PROVIDERS: PCP Family Medicine; Visit Provider Obstetrics & Gynecology
DX: N87.0 Mild cervical dysplasia (principal)
CPT/HCPCS: 88305; 88341; 88342

== ENCOUNTER → 2021-06-18 19:25 | Outpatient (CLI) | payer MEDICAID, SELFPAY | PROVIDERS: PCP Family Medicine | DX: U07.1 COVID-19 (principal) | CPT/HCPCS: 87635; U0003; U0005 ==

== ENCOUNTER 2022-03-04 12:33 | Emergency (ER) | payer MEDICAID, SELFPAY ==
[2022-03-04 12:34] VITALS: BP 144/104; PULSE 120; RESP 18; TEMP 36.4; O2SAT 98; BMI 34.7
--- NOTE | 2022-03-04 12:52 | EX.ED.DYSGE1 ---
HPI History of Present Illness Chief Complaint: General Illness Informant: patient Onset/Context/Timing Onset: Weeks (1-2) Context: Gradual Onset Timing: Continuous Quality: achy, malaise Location: all over Current Severity: Severe Maximum Severity: Severe Worsened by: lying at rest at night Relieved by: getting around during the day Associated Symptoms Associated Symptoms: muscle spasms Narrative Narrative: Patient states she feels miserable, worse than when I had COVID. 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 She feels extremely malaise, she feels achy all over, pain goes down the back of both legs especially at night when she is trying to rest at she states that her calves feel rockhard. She confirms that he did not feel this way now, as I mash on them and they are nice and soft and nontender. She states her knees hurt when she is resting. She most feels like her legs are restless. She has polydipsia but not polyuria, and still feels like her mouth is dry after drinking a lot of fluids. She is not a diabetic that she knows of. She states she gets sweaty and has never measured a fever despite multiple measurements. [facility] Medical History (Updated 03/04/22 @ 14:[address] Zi Horne MD) Anxiety Hx of essential hypertension Home Medications vits,calcium no.78-iron fumarate-folic acid 29 mg-1 mg tablet (Prenatabs FA) 1 tab PO DAILY Check with primary doctor 08/27/14 [History Last Taken 1 Day Ago ~03/19/19] escitalopram oxalate 10 mg tablet 10 mg PO DAILY Check with primary doctor 12/09/14 [History Last Taken 03/20/19 06:00] ibuprofen 600 mg tablet 600 mg PO Q8H PRN Pain Score 1-10/10 #30 tabs 03/22/19 [Rx Last Taken Unknown] nifedipine 60 mg tablet,extended release 24 hr 60 mg PO DAILY #30 tabs 03/22/19 [Rx Last Taken Unknown] Allergy/AdvReac Type Severity Reaction Status Date / Time amoxicillin Allergy Unknown Verified 09/02/14 20:54 Surgical History (Updated 03/04/22 @ 12:57 by Armida Jerry) History of cholecystectomy Social History Smoking Status: Current every day smoker tobacco type: cigarettes ROS ROS ED Constitutional Constitutional ED: Reports body ache(s), fatigue, malaise and sweats; Denies chills or fever(s) Eyes Eyes: Denies change in vision or diplopia ENT ENT ED: Reports other Details: Neck soreness without stiffness ; Denies rhinorrhea or sore throat Cardiovascular Cardiovascular: Denies chest pain or palpitations Respiratory/Chest Respiratory/Chest: Denies cough or dyspnea Gastrointestinal Gastrointestinal: Reports other Details: Occasional nausea not now ; Denies abdominal pain, diarrhea or vomiting Genitourinary Genitourinary ED: Denies dysuria, hematuria or urinary frequency Musculoskeletal Musculoskeletal: Reports as per HPI, back pain, extremity pain, joint pain, myalgias and neck pain; Denies joint swelling Integumentary Denies abscess or rash Neurologic Neurologic: Denies headache(s), paresthesias or weakness Psychiatric Psychiatric: Denies anxiety or suicidal thoughts Endocrine Endocrinology: Reports polydipsia; Denies polyuria EXAM Physical Exam Const Vital Signs: 03/04/22 12:34 03/04/22 12:56 Temperature 97.5 F L Temperature Source Temporal Pulse Rate 120 H Respiratory Rate 18 Respiratory Effort Normal Non-Labored Blood Pressure 144/104 H Blood Pressure Mean 117 Pulse Ox 98 Oxygen Delivery Method Room Air Positive well nourished, well developed and obese General Appearance ED: well developed and NAD Nutritional Appearance: obese HEENT Reports moist mucous membranes HEENT Narrative: Posterior oropharynx clear. No trismus. Normal tongue. normocephalic and atraumatic Eyes PERRL and EOMs intact bilaterally Neck full ROM and supple Neck Narrative: Tenderness posterior neck without palpable lymphadenopathy Resp normal respiratory effort and clear to auscultation bilaterally Cardio regular rate, regular rhythm and no murmurs GI non-tender and non-distended Auscultation: normoactive bowel sounds Palpation: soft Back/Spine no CVA tenderness General Back: other FROM Extremity normal to inspection Extremity Narrative: Full range of motion without any difficulty with regards to joints. No joints are erythematous or excessively warm compared to other areas. General Extremety ED: Negative for edema, pulses abnormal or tenderness General Extremity: Negative for edema or pulses abnormal Neuro oriented x3, CN's II-XII intact bilaterally and no sensory deficits noted Sensorium / Orientation: awake and alert Motor Exam: strength 5/5 throughout Skin no rashes or lesions noted and no wounds MDM MDM MDM Narrative Medical decision making narrative: Patient's Monospot turned out positive. This is consistent with mononucleosis acute. Her liver enzymes are elevated which is also consistent with this. Everything else is unremarkable. She is reassured, she was given a liter of IV fluids, and will be discharged with supportive care instructions. Lab Data Attestation: I reviewed the patient's lab results. Labs: Laboratory Results - last 24 hr 03/04/22 03/04/22 03/04/22 13:09 13:09 13:09 WBC 11.7 H RBC 4.39 Hgb 13.9 Hct 39.0 MCV 88.8 MCH 31.7 MCHC 35.6 RDW Std Deviation 49.1 H RDW Coeff of [place] 14.9 H Plt Count 309 MPV 9.6 Immature Gran % (Auto) 0.800 Neut % (Auto) 21.8 L Lymph % (Auto) 71.3 H [place] % (Auto) 4.6 Eos % (Auto) 0.5 Baso % (Auto) 1.0 Absolute Neuts (auto) 2.5 Absolute Lymphs (auto) 8.31 H Nucleated RBC % 0 [address] Review May foll Reactive Lymphocytes 2+ Sodium 140 Potassium 3.6 Chloride 108 H Carbon Dioxide 24.0 Anion Gap 8 BUN 9 Creatinine 0.85 Estim Creat Clear Calc 85.66 Est GFR (MDRD) Af Amer 97 Est GFR (MDRD) Non-Af 81 BUN/Creatinine Ratio 10.6 Glucose 107 H Calcium 8.9 Total Bilirubin 0.60 AST 178 H ALT 278 H Alkaline Phosphatase 987 H Total Protein 6.7 Albumin 2.8 L Globulin 3.9 Albumin/Globulin Ratio 0.7 L Urine Color Urine Clarity Urine pH Ur Specific [place] Urine Protein Urine Glucose (UA) Urine Ketones Urine Occult Blood Urine Nitrite Urine Bilirubin Urine Urobilinogen Ur Leukocyte Esterase Urine RBC Urine WBC Ur Squamous Epith Cells Urine Bacteria Urine Mucus Monoscreen POSITIVE H 03/04/22 13:09 WBC RBC Hgb Hct MCV MCH MCHC RDW Std Deviation RDW Coeff of [place] Plt Count MPV Immature Gran % (Auto) Neut % (Auto) Lymph % (Auto) Potter % (Auto) Eos % (Auto) Baso % (Auto) Absolute Neuts (auto) Absolute Lymphs (auto) Nucleated RBC % Diff Path Review Reactive Lymphocytes Sodium Potassium Chloride Carbon Dioxide Anion Gap BUN Creatinine Estim Creat Clear Calc Est GFR (MDRD) Af Amer Est GFR (MDRD) Non-Af BUN/Creatinine Ratio Glucose Calcium Total Bilirubin AST ALT Alkaline Phosphatase Total Protein Albumin Globulin Albumin/Globulin Ratio Urine Color Yellow Urine Clarity Clear Urine pH 6.5 Ur Specific [place] 1.010 Urine Protein 15 H Urine Glucose (UA) Normal Urine Ketones Negative Urine Occult Blood Negative Urine Nitrite Negative Urine Bilirubin Negative Urine Urobilinogen Normal Ur Leukocyte Esterase 25 H Urine RBC 0 SEEN Urine WBC 0 SEEN Ur Squamous Epith Cells 0 SEEN Urine Bacteria 0 SEEN Urine Mucus 0 SEEN Monoscreen Discharge Plan Triage Chief Complaint: General Illness ED Provider: Zi Horne Dx/Rx/DC Orders Clinical Impression: Mononucleosis, Muscle spasm of both lower legs Instructions: ED Mononucleosis Prescriptions: No Action vit,[id number] [Prenatabs FA] 1 TABLET tablet 1 tab PO DAILY escitalopram oxalate 10 MG tablet 10 mg PO DAILY ibuprofen 600 MG tablet 600 mg PO Q8H PRN (Reason: Pain Score 1-10/10) Qty: 30 0RF nifedipine 60 MG tablet 60 mg PO DAILY Qty: 30 1RF Primary Care Provider: Gary Rain Referrals: Gary Rain DO [Primary Care Provider] - As Needed Disposition Disposition: Home, Self Care
[2022-03-04] MEDS: 0.9% Normal Saline 1,000 ML 999 ML IV (13:08)
[2022-03-04 13:13] LABS: Bacteria 0 SEEN /hpf (None Seen); Mucous, Urine 0 SEEN /hpf (<or=2+); Red Blood Cells-Urine 0 SEEN /hpf (0-5); Squamous Epithelial Cells - UA 0 SEEN /hpf (5-10); White Blood Cells 0 SEEN /hpf (0-5)
[2022-03-04 13:14] LABS: Absolute Lymphocyte Count 8.31 X10^3/uL (0.83-4.51); Absolute Neutrophil Count 2.5 X10^3/uL (2.0-7.7); Basophil# 0.12 X10^3/uL; Color, Urine Yellow (Yellow); Eosinophil# 0.06 X10^3/uL; Eosinophils% 0.5 % (0-5); Glucose, Dipstick Normal (Normal); Hemoglobin 13.9 g/dL (12.0-15.0); Ketone-Dipstick Negative (Negative); Leukocyte Esterase-Dipstick 25 /ul (Negative); Lymphocyte # 8.31 X10^3/ul (0.83-4.51); Lymphocyte % 71.3 % (19-41); Mean Corp Hgb Conc 35.6 g/dL (32-36); Mean Corpuscular Hgb 31.7 pg (27.0-32.0); Mean Corpuscular Volume 88.8 fL (81-99); Mean Platelet Vol. 9.6 fl (6.2-12.0); Monocyte# 0.54 X10^3/uL; Monocyte% 4.6 % (0-10); NRBC Flagged by Analyzer 0 % (0-5); Neutrophil # 2.53 X10^3/uL (2.7-7.7); Neutrophil % 21.8 % (47-70); Nitrite-Dipstick Negative (Negative); Occult Blood-Urine Negative /ul (Negative); POSITIVE DIFFERENTIAL YES; POSITIVE MORPHOLOGY YES; Platelet Count 309 K/mm3 (150-450); Protein-Dipstick 15 mg/dl (Negative); RBC Distribution Width CV 14.9 % (11.6-14.6); RBC Distribution Width SD 49.1 fl (35.1-43.9); Red Blood Count 4.39 M/mm3 (4.2-5.4); Urine Bilirubin Dipstick Negative (Negative); Urine Clarity Clear (Clear); Urine Urobilinogen Normal (Normal); Urine pH 6.5 (5.0 - 8.0); White Blood Count 11.7 K/mm3 (4.4-11.0)
[2022-03-04 13:15] LABS: Differential Indicated SCAN CRITERIA MET
[2022-03-04 13:32] LABS: ALB/GLOB Ratio 0.7 RATIO (0.9-2.4); AST(SGOT) 178 U/L (15-37); Alanine Aminotransfer ALT/SGPT 278 U/L (13-56); Albumin, Serum 2.8 g/dL (3.2-5.0); Alkaline Phosphatase 987 U/L (45-117); Anion Gap 8 (5-15); BUN 9 mg/dL (7-18); BUN/Creat Ratio 10.6 RATIO (10-20); Calcium,Total 8.9 mg/dL (8.5-10.1); Chloride 108 mmol/L (98-107); Creatinine, Serum 0.85 mg/dL (0.55-1.02); EST Glomerular Filtration Rate 81 mL/min (>60); Est Glom Filt Rate - Afr Amer 97 mL/min (>60); Estimated Creatinine Clearance 85.66 ml/min; Globulin 3.9 g/dL (2.2-4.2); Glucose 107 mg/dL (74-106); Potassium 3.6 mmol/L (3.5-5.1); Protein, Total 6.7 g/dL (6.4-8.2); Sodium Level 140 mmol/L (136-145)
[2022-03-04 13:47] LABS: Reactive Lymphocyte 2+
[2022-03-04 13:51] LABS: Internal QC Validated? YES +Cl - CLEAR BKGD; Monotest POSITIVE (Negative)
[2022-03-04 14:31] VITALS: BP 126/74; PULSE 62; RESP 15; O2SAT 98
[2022-03-05 13:21] LABS: Pathologist Review Reviewed
== END 2022-03-04 14:32 | disposition home or self-care (01) ==
PROVIDERS: Emergency Provider Emergency Medicine; PCP Family Medicine; Visit Provider Emergency Medicine
DX: B27.90 Infectious mononucleosis, unspecified without complication (principal); M62.838 Other muscle spasm; F17.210 Nicotine dependence, cigarettes, uncomplicated; I10 Essential (primary) hypertension; F41.9 Anxiety disorder, unspecified; Z79.899 Other long term (current) drug therapy; E66.9 Obesity, unspecified; Z68.34 Body mass index [BMI] 34.0-34.9, adult
CPT/HCPCS: 80053; 81001; 85025; 86308; 99283; J7030

== ENCOUNTER 2024-05-09 10:50 | Emergency (ER) | payer MEDICAID, SELFPAY ==
[2024-05-09 10:50] VITALS: BP 154/101; PULSE 104; RESP 16; TEMP 37.2; O2SAT 99; BMI 40.5
--- NOTE | 2024-05-09 11:09 | EDS_ITS ---
HPI HPI - Female History of Present Illness Chief Complaint: Vag Bleeding Narrative Narrative: 38-year-old female who denies significant past medical history presents with vaginal bleeding for the last 14 days. She states that she usually has normal menses every 28 days. However, around 14 days ago, she started bleeding which was 3 to 4 days earlier without her normal menses. She went to urgent care today because she is having intermittent bleeding that is sometimes heavy and may have lightened up. Yesterday, she had a tampon inserted as well as a pad and saturated through both of them within an hour. She states that she is feeling lightheaded and dizzy with very occasional headache, but also states that she is very shaky. She went to urgent care initially and then was referred here because of the shakiness. [facility] Medical History Hx of essential hypertension Anxiety Home Medications ?Medication ?Instructions ?Recorded ?Last Taken ?Type vits,calcium no.78-iron 1 tab PO DAILY Check with primary 08/27/14 1 Day Ago History fumarate-folic acid 29 mg-1 mg doctor ~03/19/19 tablet (Prenatabs FA) escitalopram oxalate 10 mg tablet 10 mg PO DAILY Check with primary 12/09/14 03/20/19 06:00 History doctor ibuprofen 600 mg tablet 600 mg PO Q8H PRN Pain Score 03/22/19 Unknown Rx 1-03/26 #30 tabs nifedipine 60 mg tablet,extended 60 mg PO DAILY #30 tabs 03/22/19 Unknown Rx release 24 hr Allergy/AdvReac Type Severity Reaction Status Date / Time amoxicillin Allergy Unknown Verified 05/09/24 10:51 Surgical History History of cholecystectomy Social History Smoking Status: Current every day smoker tobacco type: cigarettes ROS ROS ED ROS Narrative Constitutional: No fever, no chills. HEENT: No sore throat. No neck pain. No loss of vision. No rhinorrhea. Cardiovascular: No chest pain. No palpitations. No pedal edema. Respiratory: No cough, no shortness of breath. Abdominal: No abdominal pain. No nausea. No vomiting. Genitourinary: No dysuria. No hematuria. No pelvic cramping. Vaginal bleeding x 14 days with intermittently heavy flow. Musculoskeletal: No myalgias. No arthralgias. Neurologic: Occasional headaches. Positive lightheadedness. Feels shaky. Skin: No rash. No change in color. Psychiatric: No depression. No anxiety. EXAM Physical Exam Narrative Exam Narrative: Afebrile. Vital signs noted. Mild tachycardia 104 bpm. Lungs clear to auscultation bilaterally. Abdomen soft and nontender with normoactive bowel sounds. Neurological examination is nonfocal and nonlateralizing. Moves all extremities. Awake, alert, oriented. No evidence of pallor of skin. Const Vital Signs: 05/09/24 10:50 Temperature 98.9 F Temperature Source Temporal Pulse Rate 104 H Respiratory Rate 16 Blood Pressure 154/101 H Blood Pressure Mean 118 Pulse Ox 99 Oxygen Delivery Method Room Air MDM MDM MDM Narrative Medical decision making narrative: Differential diagnosis includes but not limited to mental menorrhagia versus dysfunctional uterine bleeding versus ectopic versus dehydration. History and physical does not necessarily support dehydration as she has not had nausea, vomiting, or any other problems, no diarrhea. Her physical examination does not lend itself to anemia requiring transfusions as well. She may be more anxious as she has a history of anxiety listed in her problem list. I reviewed her laboratory work and she has normal white count of 9.4 with hemoglobin 13.2, hematocrit 39.1, platelet count normal at 387. Electrolyte panel is significant for chloride of 110, although I think this is nonspecific, normal sodium of 141 and potassium normal at 3.9. Glucose is appropriately elevated at 108 with an anion gap normal at 5. AST low at 11 but normal ALT of 13 and alk phos normal. Serum test is negative. I do not feel she requires an emergent ultrasound. Based on her chaperoned pelvic examination as there was only scant blood in the vaginal vault, I feel she can be discharged to follow-up with the [employer] on-call, Dr. Sulema Coreas, within a week if symptoms are not improving. Return instructions to the emergency department were reviewed. Disposition is discharged home in stable condition. History & Record Review Discussion w/independent historian: Patient Additional record(s) reviewed:: Prior outpatient record (Noncontributory to current chief complaint.) Lab Data Attestation: I reviewed the patient's lab results. Labs: Laboratory Results - last 24 hr 05/09/24 11:20 WBC 9.4 RBC 4.12 L Hgb 13.2 Hct 39.1 MCV 94.9 MCH 32.0 MCHC 33.8 RDW Std Deviation 49.8 H RDW Coeff of [place] 14.3 Plt Count 387 MPV 9.1 Immature Gran % (Auto) 0.400 Neut % (Auto) 76.9 H Lymph % (Auto) 14.5 L [place] % (Auto) 6.4 Eos % (Auto) 1.3 Baso % (Auto) 0.5 Absolute Neuts (auto) 7.2 Absolute Lymphs (auto) 1.36 Nucleated RBC % 0 Sodium 141 Potassium 3.9 Chloride 110 H Carbon Dioxide 26.0 Anion Gap 5 BUN 8 Creatinine 0.88 Estim Creat Clear Calc 111.08 Est GFR (MDRD) Af Amer 92 Est GFR (MDRD) Non-Af 76 BUN/Creatinine Ratio 9.1 L Glucose 108 H Calcium 8.7 Total Bilirubin 0.50 AST 11 L ALT 13 Alkaline Phosphatase 68 Total Protein 6.6 Albumin 3.7 Globulin 2.9 Albumin/Globulin Ratio 1.3 Serum , Qual NEGATIVE Discharge Plan Triage Chief Complaint: Vag Bleeding ED Provider: Victorino Moore Dx/Rx/DC Orders Clinical Impression: Abnormal vaginal bleeding, Menometrorrhagia, Shakiness Instructions: ED Dysfunctional Uterine Bleeding, ED Heavy Menstrual Bleeding Prescriptions: No Action vit,[id number] [Prenatabs FA] 1 TABLET tablet 1 tab PO DAILY escitalopram oxalate 10 MG tablet 10 mg PO DAILY ibuprofen 600 MG tablet 600 mg PO Q8H PRN (Reason: Pain Score 1-10/10) Qty: 30 0RF nifedipine 60 MG tablet 60 mg PO DAILY Qty: 30 1RF Primary Care Provider: Care Physician,No Primary Referrals: Gary Rain DO [Non-Staff] - Sulema Coreas MD [Med Staff - Active Staff] - 1 Week if not improving Activity Restrictions/Additional Instructions: Return with increased bleeding, new or worsening symptoms. Print Language: [place] Disposition Disposition: Home, Self Care
[2024-05-09 11:28] LABS: Absolute Lymphocyte Count 1.36 X10^3/uL (0.83-4.51); Absolute Neutrophil Count 7.2 X10^3/uL (2.0-7.7); Basophil# 0.05 X10^3/uL; Basophil% 0.5 % (0-1); Eosinophil# 0.12 X10^3/uL; Eosinophils% 1.3 % (0-5); Hematocrit 39.1 % (37-47); Hemoglobin 13.2 g/dL (12.0-15.0); Lymphocyte # 1.36 X10^3/ul (0.83-4.51); Lymphocyte % 14.5 % (19-41); Mean Corp Hgb Conc 33.8 g/dL (32-36); Mean Corpuscular Volume 94.9 fL (81-99); Mean Platelet Vol. 9.1 fl (6.2-12.0); Monocyte% 6.4 % (0-10); NRBC Flagged by Analyzer 0 % (0-5); Neutrophil # 7.24 X10^3/uL (2.7-7.7); Neutrophil % 76.9 % (47-70); Platelet Count 387 K/mm3 (150-450); RBC Distribution Width CV 14.3 % (11.6-14.6); RBC Distribution Width SD 49.8 fl (35.1-43.9); Red Blood Count 4.12 M/mm3 (4.2-5.4); White Blood Count 9.4 K/mm3 (4.4-11.0)
[2024-05-09 11:38] LABS: Internal QC Validated? YES +Cl - CLEAR BKGD; Pregnancy, Serum, hCG Quali. NEGATIVE Negative; Record Kit Lot#, Serum Preg. 869294
[2024-05-09 11:47] LABS: ALB/GLOB Ratio 1.3 RATIO (0.9-2.4); AST(SGOT) 11 U/L (15-37); Alanine Aminotransfer ALT/SGPT 13 U/L (13-56); Albumin, Serum 3.7 g/dL (3.2-5.0); Alkaline Phosphatase 68 U/L (45-117); Anion Gap 5 (5-15); BUN 8 mg/dL (7-18); BUN/Creat Ratio 9.1 RATIO (10-20); Calcium,Total 8.7 mg/dL (8.5-10.1); Chloride 110 mmol/L (98-107); Creatinine, Serum 0.88 mg/dL (0.55-1.02); EST Glomerular Filtration Rate 76 mL/min (>60); Est Glom Filt Rate - Afr Amer 92 mL/min (>60); Estimated Creatinine Clearance 111.08 ml/min; Globulin 2.9 g/dL (2.2-4.2); Glucose 108 mg/dL (74-106); Potassium 3.9 mmol/L (3.5-5.1); Protein, Total 6.6 g/dL (6.4-8.2); Sodium Level 141 mmol/L (136-145)
[2024-05-09 12:13] VITALS: BP 147/87; PULSE 81; RESP 16; TEMP 36.9; O2SAT 100
== END 2024-05-09 12:13 | disposition home or self-care (01) ==
PROVIDERS: Emergency Provider Emergency Medicine; Visit Provider Emergency Medicine
DX: N92.1 Excessive and frequent menstruation with irregular cycle (principal); I10 Essential (primary) hypertension; R42 Dizziness and giddiness; R51.9 Headache, unspecified; F17.210 Nicotine dependence, cigarettes, uncomplicated; R00.0 Tachycardia, unspecified
CPT/HCPCS: 80053; 84703; 85025; 99283; A4216

== ENCOUNTER → 2024-05-21 | Outpatient (CLI) | payer MEDICAID, SELFPAY ==
[2024-05-25 22:06] LABS: Chlamydia By Nucleic Acid AMP Negative (Negative); Gonococcus By Nucleic Acid AMP Negative (Negative)
== END | disposition home or self-care (01) ==
LOC: LABSPEC 14:18
PROVIDERS: Referring Provider Nurse Practitioner Family; Visit Provider Nurse Practitioner Family
DX: Z20.2 Contact with and (suspected) exposure to infections with a predominantly sexual mode of transmission (principal); N89.8 Other specified noninflammatory disorders of vagina
CPT/HCPCS: 87070; 87205; 87491; 87591

== ENCOUNTER → 2024-06-02 | Outpatient (CLI) | payer MEDICAID, SELFPAY ==
--- NOTE | 2024-06-02 11:00 | US_ITS ---
INDICATION: irregular bleeding EXAMINATION: Ultrasound US Pelvis Non OB Complete With Transvaginal Imaging TECHNIQUE: Transabdominal and transvaginal pelvic ultrasound was performed. Grayscale, spectral waveform, and color flow Doppler evaluation of the adnexa. COMPARISON: FINDINGS: UTERUS: Anteverted. The uterus measures 8.4 x 5.7 x 4.2 cm. There is no uterine mass. The endometrial stripe measures 13 mm in AP diameter with mild heterogeneity. Nabothian cysts. RIGHT OVARY: 3.4 x 2.6 x 3.1 cm. There is a 2.1 cm cystic nodule. There is normal arterial inflow and venous outflow present in the right ovary. LEFT OVARY: 3.4 x 2.2 x 1.7 cm. There is a 1.9 cm cystic nodule. There is normal arterial inflow and venous outflow present in the left ovary. FREE FLUID: None. The bladder has a volume of 251 cc. US/Pelvic w/ Transvaginal IMPRESSION: Bilateral ovarian cystic nodules. Small nabothian cysts. Heterogeneous endometrium. Electronically Signed: Kolby Gonzalez DO at 16:12 EST Reading Location ID and State: [id number] / [place] Tel [phone], Service support ,
== END | disposition home or self-care (01) ==
LOC: US 10:57
PROVIDERS: Referring Provider Nurse Practitioner Family; Visit Provider Nurse Practitioner Family
DX: N93.9 Abnormal uterine and vaginal bleeding, unspecified (principal)
CPT/HCPCS: 76830; 76856

== ENCOUNTER → 2024-06-29 | Outpatient (CLI) | payer MEDICAID, SELFPAY ==
[2024-06-29 17:28] LABS: T4 Free Direct 0.94 ng/dL (0.76-1.46)
[2024-07-02 00:06] LABS: HPV APTIMA, High Risk Negative (Negative)
== END | disposition home or self-care (01) ==
LOC: BWCLAB 14:25
PROVIDERS: Nurse Practitioner Women's Health; Referring Provider Nurse Practitioner Family; Visit Provider Nurse Practitioner Family
DX: Z12.4 Encounter for screening for malignant neoplasm of cervix (principal); N93.9 Abnormal uterine and vaginal bleeding, unspecified; Z13.29 Encounter for screening for other suspected endocrine disorder; R87.620 Atypical squamous cells of undetermined significance on cytologic smear of vagina (ASC-US); R87.811 Vaginal high risk human papillomavirus (HPV) DNA test positive
CPT/HCPCS: 36415; 84439; 84443; 87624; 88175; G0145

== ENCOUNTER → 2024-07-28 | Outpatient (CLI) | payer MEDICAID, SELFPAY ==
--- NOTE | 2024-07-28 12:56 | US_ITS ---
PROCEDURE: PELVIC W/ TRANSVAGINAL REASON FOR EXAM: Follow-up for ovarian cyst and thickened endometrium. TECHNIQUE: Transabdominal and transvaginal pelvic ultrasound COMPARISON: Comparison is made with prior study dated June 02, 2024. FINDINGS: Measurements: Uterus: 8.3 cm x 4.8 cm x 4.1 cm. Endometrial Thickness: 16 mm hyperechoic. Nabothian cyst in the cervix. Right Ovary: 2.9 cm x 2.5 cm x 2.1 cm. Left Ovary: 3.7 cm x 3.1 cm x 2.8 cm. There is a 2.6 cm x 2.1 cm x 2.5 cm hemorrhagic cyst. TRANSABDOMINAL: Uterus: Normal size, myometrial echotexture, and contour. Endometrium: Heterogeneous. Right ovary: Dominant follicle is seen within the ovary. Left ovary: Hemorrhagic cyst is seen. No large pelvic mass identified. Transvaginal sonography was performed to better visualize the endometrium and to look for the nonvisualized ovary or ovaries. TRANSVAGINAL: Uterus: Anteverted. Normal contour and myometrial echotexture. Endometrium: Endometrial thickening. Right ovary: Normal size and echotexture. Left ovary: Normal size and echotexture. Other adnexal findings: None. Cul-de-sac: No free intraperitoneal fluid identified. No tenderness. US/Pelvic w/ Transvaginal IMPRESSION: Stable examination. Reading Location: [id number]
== END | disposition home or self-care (01) ==
LOC: US 12:52
PROVIDERS: Referring Provider Nurse Practitioner Family; Visit Provider Nurse Practitioner Family
DX: N83.209 Unspecified ovarian cyst, unspecified side (principal)
CPT/HCPCS: 76830; 76856